=== PATIENT | male | born 1965 | race Caucasian/White ===

== ENCOUNTER 2016-12-08 15:25 | Emergency (ER) | payer OTHER ==
[~2016-12-08] VITALS: Ht 180.3 cm; Wt 127.0 kg
[~2016-12-08 15:25] MED LIST: ESCITALOPRAM OXA5 MG PO; GABA-585 PO; HYDR-2758 PO; LITH150C PO; OMEP20CA9 PO; OXYC-328 PO; QUET25TA5 PO
[2016-12-08 15:50] VITALS: BP 153/83
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
[2016-12-08] MEDS ORDERED: DIPHTH,PERTUSS(ACELL),TET TOX 0.5 ML DISP.SYRIN. VAX IM ONE (16:15)
[2016-12-08] MEDS ORDERED: silver sulfADIAZINE 1% CREAM 25GM TUBE. TP ONE (16:15)
[2016-12-08] MEDS ORDERED: TRAM-48 PO (16:19)
[2016-12-08] MEDS ORDERED: SILV20CR14 TP (16:19)
== END 2016-12-08 16:25 | disposition home or self-care (01) ==
LOC: ER 15:25
DX: T24.201A Burn of second degree of unspecified site of right lower limb, except ankle and foot, initial encounter (principal); T31.0 Burns involving less than 10% of body surface; F41.9 Anxiety disorder, unspecified; M19.90 Unspecified osteoarthritis, unspecified site; F31.9 Bipolar disorder, unspecified; K21.9 Gastro-esophageal reflux disease without esophagitis; F90.9 Attention-deficit hyperactivity disorder, unspecified type; Z90.49 Acquired absence of other specified parts of digestive tract; X08.8XXA Exposure to other specified smoke, fire and flames, initial encounter; Y93.89 Activity, other specified; Y92.89 Other specified places as the place of occurrence of the external cause; Y99.8 Other external cause status
CPT/HCPCS: 16000; 99284-25

== ENCOUNTER → 2016-12-13 | Outpatient (CLI) | payer OTHER ==
[2016-12-08 15:50] VITALS: BP 153/83
[~2016-12-13] MED LIST changes: +SILV20CR14 TP; +TRAM-48 PO
== END | disposition home or self-care (01) ==
LOC: PMGWOUND 09:35
PROVIDERS: ATTEND Preventive Medicine Undersea and Hyperbaric Medicine
DX: T24.231A Burn of second degree of right lower leg, initial encounter (principal); T31.0 Burns involving less than 10% of body surface; F41.9 Anxiety disorder, unspecified; M19.90 Unspecified osteoarthritis, unspecified site; F31.9 Bipolar disorder, unspecified; K21.9 Gastro-esophageal reflux disease without esophagitis; F17.210 Nicotine dependence, cigarettes, uncomplicated; X08.8XXA Exposure to other specified smoke, fire and flames, initial encounter; Y93.89 Activity, other specified; Y92.89 Other specified places as the place of occurrence of the external cause; Y99.8 Other external cause status
CPT/HCPCS: 99215

== ENCOUNTER 2017-07-18 17:52 | Emergency (ER) | payer OTHER ==
[2017-07-18 19:24] LABS: INFLUENZA A PATIENT NEGATIVE (NEGATIVE); OBC FLU VALID
[2017-07-18 19:28] LABS: INFLUENZA B PATIENT POSITIVE (NEGATIVE)
[2017-07-18] MEDS ORDERED: FAMOTIDINE 20 MG TABLET. PO (19:30)
[2017-07-18] MEDS: IV NORMAL SALINE 1000ML BAG 1,000 ML IV ×2 (19:51)
[2017-07-18] MEDS: KETOROLAC 15 MG/ML VIAL. IV (19:52)
== END 2017-07-18 21:10 | disposition home or self-care (01) ==
LOC: ER 17:52
DX: J10.1 Influenza due to other identified influenza virus with other respiratory manifestations (principal); K21.9 Gastro-esophageal reflux disease without esophagitis; I10 Essential (primary) hypertension; E78.00 Pure hypercholesterolemia, unspecified; N40.0 Benign prostatic hyperplasia without lower urinary tract symptoms; F12.10 Cannabis abuse, uncomplicated; F10.10 Alcohol abuse, uncomplicated; Z88.8 Allergy status to other drugs, medicaments and biological substances
CPT/HCPCS: 71045; 87804; 87804-59; 93005; 96361; 96374; 99285-25; J1885; J7030